=== PATIENT | female | born 1985 | race Two or more races ===

== ENCOUNTER 2021-05-20 07:15 | Outpatient (CLI) | payer OTHER ==
--- NOTE | 2021-05-20 14:42 | MRI Report ---
PROCEDURE: Shoulder RT W/O INDICATIONS: Pain IN RIGHT SHOULDER TECHNIQUE: Noncontrast oblique coronal T2 fast spin echo with fat saturation, oblique sagittal T1 spin echo and T2 fast spin echo with fat saturation, axial T1 spin echo and T2 fast spin echo with fat saturation t hrough the shoulder. COMPARISON: None. FINDINGS: Findings: Supraspinatus: Mild tendinopathy with small partial articular surface tear. Infraspinatus: Mild tendinopathy with small partial articular surface tear. Subscapularis: No evidence of tear. Teres minor: No evidence of tear. Labrum: No evidence of tear. Biceps tendon: No evidence of subluxation or tear. Acromioclavicular joint: Normal alignment. Small focus of fluid signal seen along the superior aspec t of the distal clavicle. Muscle: No significant atrophy. Bones: No significant abnormality. Specifically, no evidence of fracture, contusion, or necrosis. Miscellaneous: Trace glenohumeral joint effusion. Small amount of subacromial/deltoid bursal fluid. No intra-articular bodies. Intact coracoclavicular ligament. IMPRESSION: 1. Mild supraspinatus and infraspinatus tendinopathy with small partial articular surface tears. 2. Small amount of fluid signal superior to the distal clavicle, which is nonspecific. 3. Mild subacromial/subdeltoid bursitis. Reviewed by: Chaitanya Marsh MD on 05/20/2021 2:40 PM PDT Approved by: Chaitanya Marsh MD on 05/20/2021 2:40 PM PDT Station ID: [id number]
== END 2021-05-20 07:16 | disposition home or self-care (01) ==
LOC: DI 07:15
DX: M75.111 Incomplete rotator cuff tear or rupture of right shoulder, not specified as traumatic (principal); M75.51 Bursitis of right shoulder; R93.6 Abnormal findings on diagnostic imaging of limbs